=== PATIENT | female | born 1965 | race Caucasian/White ===

== ENCOUNTER 2023-02-12 19:52 | Emergency (ER) | payer OTHER ==
[~2023-02-12] VITALS: Ht 152.4 cm; Wt 101.2 kg
[2023-02-12 20:09] VITALS: BP 167/86; PULSE 69; RESP 20; TEMP 97.3; O2SAT 97
[2023-02-12] MEDS ORDERED: IBUP-2213 PO (21:19)
[2023-02-12] MEDS ORDERED: CIPR10SU LEFT EAR (21:19)
[2023-02-12] MEDS ORDERED: AMOX-1230 PO (21:19)
[2023-02-12] MEDS ORDERED: KETOROLAC 30 MG/ML VIAL IM ONE (21:25)
[2023-02-12 22:23] VITALS: BP 167/86; PULSE 69; RESP 20; TEMP 97.3
[2023-02-12 22:30] VITALS: O2SAT 97
== END 2023-02-12 22:23 | disposition home or self-care (01) ==
LOC: MED 19:52
DX: H66.92 Otitis media, unspecified, left ear (principal); Z79.899 Other long term (current) drug therapy
CPT/HCPCS: 96372; 99283; J1885